=== PATIENT | female | born 1960 | race Caucasian/White ===

== ENCOUNTER 2019-10-14 16:28 | Emergency (ER) | payer BC ==
[~2019-10-14] VITALS: Ht 170.2 cm; Wt 98.6 kg
--- NOTE | 2019-10-14 18:57 | NUR ---
[facility]ASC CALLED BACK AT 18:57. ON WAY IN
--- NOTE | 2019-10-14 19:26 | NUR ---
[employer]er is at the bedside at this time completing the study of the vessels in the left lower extremities.
[2019-10-14] MEDS ORDERED: APIX5TAB3 PO (20:36)
[2019-10-14 21:03] LABS: ALANINE AMINOTRANSFERASE 23 U/L (12-78); ALBUMIN 3.7 G/DL (3.4-5.0); ALKALINE PHOSPHATASE 107 IU/L (46-116); ANION GAP 8 (8-16); ASPARTATE AMINO TRANSFERASE 22 U/L (10-37); BILIRUBIN,TOTAL 0.3 MG/DL (0.1-1.0); BLOOD UREA NITROGEN 9 MG/DL (7-18); BUN/CREATININE RATIO 8.7 (6.6-38.0); CALCIUM 9.4 MG/DL (8.5-10.1); CHLORIDE 106 MMOL/L (99-107); CREATININE 1.04 MG/DL (0.40-0.90); GLUCOSE 96 MG/DL (70-104); POTASSIUM 4.5 MMOL/L (3.5-5.1); SODIUM 141 MMOL/L (135-145); TOTAL CARBON DIOXIDE 27.3 MMOL/L (24-32); TOTAL PROTEIN 7.3 G/DL (6.4-8.2); eGFR 55 ML/MIN
[2019-10-14] MEDS ORDERED: apixaban 5mg tablet PO STA (21:07)
[2019-10-14 22:11] VITALS: BP 120/74
== END 2019-10-14 21:26 | disposition home or self-care (01) ==
LOC: ER 16:28
DX: I82.422 Acute embolism and thrombosis of left iliac vein (principal); M79.89 Other specified soft tissue disorders; F17.210 Nicotine dependence, cigarettes, uncomplicated; Z98.890 Other specified postprocedural states; Z72.89 Other problems related to lifestyle; Z56.0 Unemployment, unspecified; Z88.8 Allergy status to other drugs, medicaments and biological substances; Z79.899 Other long term (current) drug therapy
CPT/HCPCS: 36415; 80053; 93971; 99285

== ENCOUNTER 2019-12-18 06:02 | Emergency (ER) | payer BC ==
[~2019-12-18] VITALS: Ht 170.2 cm; Wt 93.2 kg
[~2019-12-18 06:02] MED LIST: APIX5TAB3 PO
[2019-12-18 09:20] VITALS: BP 130/73
[2019-12-18] MEDS ORDERED: LIDOcaine Viscous 15ml cup ONE (10:01)
[2019-12-18] MEDS ORDERED: MIDAZolam 5mg/5ml vial ONE (10:01)
[2019-12-18] MEDS ORDERED: fentaNYL/PF 50MCG/1 ML 2ML syringe ONE (10:01)
[2019-12-18 10:45] VITALS: BP 113/71
[2019-12-18 10:55] VITALS: BP 119/72
[2019-12-18 11:05] VITALS: BP 107/60
[2019-12-18 11:15] VITALS: BP 111/72
--- NOTE | 2019-12-18 11:34 | NUR ---
REPORT RECEIVED FROM GI LAB AT THIS TIME, PATIENT AWAKE, ALERT, NO SIGNS OF DISTRESS NOTED.
[2019-12-18] MEDS ORDERED: PANT-47 PO (11:56)
[2019-12-18 12:04] VITALS: BP 111/72
== END 2019-12-18 12:06 | disposition home or self-care (01) ==
LOC: ER 06:03
DX: T18.198A Other foreign object in esophagus causing other injury, initial encounter (principal); K22.2 Esophageal obstruction; E78.00 Pure hypercholesterolemia, unspecified; Z86.718 Personal history of other venous thrombosis and embolism; Z56.0 Unemployment, unspecified; Z98.890 Other specified postprocedural states; Z88.7 Allergy status to serum and vaccine; Z79.899 Other long term (current) drug therapy; Z79.01 Long term (current) use of anticoagulants; Y92.89 Other specified places as the place of occurrence of the external cause
CPT/HCPCS: 43247; 99152; 99285; C1773; J2250; J3010; J7040; A4620

== ENCOUNTER 2021-05-07 05:11 | Inpatient (IN) | payer BC ==
[~2021-05-07] VITALS: Ht 167.6 cm; Wt 100.0 kg
[2021-05-07] VITALS (10 sets, daily range): BP systolic 100–133; BP diastolic 50–71
[~2021-05-07 05:11] MED LIST changes: +PANT-47 PO
[2021-05-07] MEDS ORDERED: PROP40TA72 PO ×2 (05:49→05:52)
[2021-05-07] MEDS ORDERED: EZET10TA6 PO (05:52)
[2021-05-07] MEDS ORDERED: HYDR-3686 PO (05:53)
[2021-05-07 06:11] LABS: BASOPHILS % (AUTO) 0.6 % (0-1); EOSINOPHILS # (AUTO) 0.3 X10'3 (0-0.9); EOSINOPHILS % (AUTO) 4.1 % (0-6); HEMATOCRIT 23.8 % (35.0-45.0); HEMOGLOBIN 7.2 g/dl (12.0-16.0); LYMPHOCYTES # (AUTO) 1.4 X10'3 (1.1-4.8); MEAN CORPUSCULAR HEMOGLOBIN 20.6 PG (27.0-31.0); MEAN CORPUSCULAR HGB CONC 30.4 g/dL (33.0-36.5); MEAN CORPUSCULAR VOLUME 67.8 FL (78-98); MEAN PLATELET VOLUME 7.6 FL (7.4-10.4); MONOCYTES # (AUTO) 0.6 X10'3 (0-0.9); MONOCYTES % (AUTO) 8.4 % (2-12); NEUTROPHILS # (AUTO) 4.9 X10'3 (1.8-7.7); NEUTROPHILS % (AUTO) 67.9 % (42-75); PLATELET COUNT 395 X10'3 (140-440); RED BLOOD COUNT 3.51 X10'6 (4.20-5.60); RED CELL DISTRIBUTION WIDTH 20.1 % (11.5-14.5); WHITE BLOOD COUNT 7.3 X10'3 (4.5-11.0)
[2021-05-07 06:25] LABS: ALANINE AMINOTRANSFERASE 25 U/L (12-78); ALBUMIN 3.2 G/DL (3.4-5.0); ALBUMIN/GLOBULIN RATIO 0.8 (1.1-1.5); ALKALINE PHOSPHATASE 114 IU/L (46-116); ANION GAP 11 (8-16); ASPARTATE AMINO TRANSFERASE 17 U/L (10-37); BILIRUBIN,TOTAL 0.3 MG/DL (0.1-1.0); BLOOD UREA NITROGEN 15 MG/DL (7-18); BUN/CREATININE RATIO 15.5 (6.6-38.0); CALCIUM 8.9 MG/DL (8.5-10.1); CHLORIDE 106 MMOL/L (99-107); CREATININE 0.97 MG/DL (0.40-0.90); GLUCOSE 94 MG/DL (70-104); SODIUM 142 MMOL/L (135-145); TOTAL CARBON DIOXIDE 25.2 MMOL/L (24-32); TOTAL PROTEIN 7.1 G/DL (6.4-8.2); eGFR 59 ML/MIN
[2021-05-07 07:08] LABS: APTT 23 SECONDS (22-32)
[2021-05-07] MEDS ORDERED: magnesium 4gm in 100ml NS 100 ML IV PRN (07:25)
[2021-05-07] MEDS ORDERED: PERFLUTREN PROTEIN-A MICROSPHR (Optison) 0.22 MG/ML 3ML VIAL IV ONE (07:25)
[2021-05-07] MEDS ORDERED: magnesium hydroxide 30ml (MOM) UD suspension PO PRN (07:25)
[2021-05-07] MEDS ORDERED: magnesium 2GM in 50ml NS 50 ML IV PRN (07:25)
[2021-05-07] MEDS ORDERED: potassium CL 10mEq/100ml bag 100 ML IV PRN (07:25)
[2021-05-07] MEDS ORDERED: mag hydrox/Alum hydrox/simeth 30ml oral suspension PO PRN (07:25)
[2021-05-07] MEDS ORDERED: potassium Cl 20 mEq SR tablet PO PRN ×2 (07:25)
[2021-05-07] MEDS ORDERED: ondansetron/PF 4mg/2ml inj IV PRN (07:25)
[2021-05-07] MEDS ORDERED: magnesium Cl slow-release 64mg tablet PO PRN (07:25)
[2021-05-07] MEDS ORDERED: acetaminophen 325mg tablet PO PRN (07:25)
[2021-05-07] MEDS: K and/or MAG REPLACEMENT MC SCH ×2 (08:00→20:00)
[2021-05-07] MEDS: docusate sod 100mg capsule PO SCH ×2 (08:00→21:16)
[2021-05-07 08:52] LABS: MAGNESIUM 2.1 MG/DL (1.5-2.4); POTASSIUM 4.4 MMOL/L (3.5-5.1)
[2021-05-07 11:06] LABS: ANISOCYTOSIS 3+; MICROCYTOSIS 2+; PLATELET ESTIMATE NORMAL
[2021-05-07 11:09] LABS: ELLIPTOCYTES FEW
[2021-05-07 11:10] LABS: POLYCHROMASIA 1+; TEAR DROP CELLS FEW
[2021-05-07] MEDS: pantoprazole 40MG/NS 100ML BAG 100 ML IV SCH ×2 (11:19→21:09)
[2021-05-07] MEDS ORDERED: APIX5TAB3 PO (12:42)
[2021-05-07] MEDS ORDERED: PANT-47 PO (12:42)
[2021-05-07 14:19] LABS: HEMATOCRIT 26.3 % (35.0-45.0); HEMOGLOBIN 8.2 g/dl (12.0-16.0); MEAN CORPUSCULAR HEMOGLOBIN 21.9 PG (27.0-31.0); MEAN CORPUSCULAR VOLUME 70.7 FL (78-98); MEAN PLATELET VOLUME 7.5 FL (7.4-10.4); PLATELET COUNT 349 X10'3 (140-440); RED BLOOD COUNT 3.73 X10'6 (4.20-5.60); RED CELL DISTRIBUTION WIDTH 22.7 % (11.5-14.5); WHITE BLOOD COUNT 7.1 X10'3 (4.5-11.0)
[2021-05-07] MEDS ORDERED: fentaNYL/PF 50MCG/1 ML 2ML syringe ONE (16:24)
[2021-05-07] MEDS ORDERED: MIDAZolam 1 MG/ML 5ML VIAL ONE (16:25)
[2021-05-07] MEDS ORDERED: LIDOcaine Viscous 15ml cup ONE (16:25)
[2021-05-07] MEDS ORDERED: simethicone 40mg/0.6ml oral drops 30ml PO PRN (18:05)
[2021-05-07] MEDS ORDERED: lidocaine 2% viscous 15 ML cup ***bronch room only MM ONE (18:05)
[2021-05-07] MEDS ORDERED: fentaNYL/PF 50MCG/1 ML 2ML syringe IV ONE (18:10)
[2021-05-07] MEDS ORDERED: PEG 3350/Na sulf,bicarb,Cl/KCl oral sol 4 liter bottle PO ONE (18:10)
[2021-05-07] MEDS ORDERED: MIDAZolam 1 MG/ML 5ML VIAL IV ONE (18:10)
--- NOTE | 2021-05-07 19:27 | NUR ---
Only one unit of blood ordered by ED MD, second unit ordered in error per Betsy RN
--- NOTE | 2021-05-07 19:30 | NUR ---
Received report from DAWSON Bonilla. Awaiting patient arrival to the floor.
[2021-05-07] MEDS: normal saline 1000ml 1,000 ML IV SCH (21:17)
[2021-05-08] VITALS (8 sets, daily range): BP systolic 116–138; BP diastolic 51–73
[2021-05-08 06:12] LABS: BASOPHILS % (AUTO) 0.5 % (0-1); EOSINOPHILS # (AUTO) 0.2 X10'3 (0-0.9); EOSINOPHILS % (AUTO) 2.8 % (0-6); HEMATOCRIT 27.9 % (35.0-45.0); HEMOGLOBIN 8.6 g/dl (12.0-16.0); LYMPHOCYTES # (AUTO) 1.3 X10'3 (1.1-4.8); LYMPHOCYTES % (AUTO) 16.4 % (21-51); MEAN CORPUSCULAR HEMOGLOBIN 21.9 PG (27.0-31.0); MEAN CORPUSCULAR HGB CONC 30.8 g/dL (33.0-36.5); MEAN CORPUSCULAR VOLUME 70.9 FL (78-98); MEAN PLATELET VOLUME 7.9 FL (7.4-10.4); MONOCYTES # (AUTO) 0.6 X10'3 (0-0.9); MONOCYTES % (AUTO) 7.6 % (2-12); NEUTROPHILS # (AUTO) 5.8 X10'3 (1.8-7.7); NEUTROPHILS % (AUTO) 72.7 % (42-75); PLATELET COUNT 353 X10'3 (140-440); RED BLOOD COUNT 3.93 X10'6 (4.20-5.60); RED CELL DISTRIBUTION WIDTH 21.9 % (11.5-14.5)
[2021-05-08 06:16] LABS: ALBUMIN 3.1 G/DL (3.4-5.0); ANION GAP 9 (8-16); BLOOD UREA NITROGEN 12 MG/DL (7-18); BUN/CREATININE RATIO 13.5 (6.6-38.0); CALCIUM 8.7 MG/DL (8.5-10.1); CHLORIDE 106 MMOL/L (99-107); CREATININE 0.89 MG/DL (0.40-0.90); GLUCOSE 90 MG/DL (70-104); POTASSIUM 3.9 MMOL/L (3.5-5.1); SODIUM 141 MMOL/L (135-145); TOTAL CARBON DIOXIDE 26.2 MMOL/L (24-32); eGFR 65 ML/MIN
--- NOTE | 2021-05-08 06:48 | NUR ---
Problems reprioritized. Patient report given, questions answered & plan of care reviewed with DAWSON Thompson.
[2021-05-08] MEDS: docusate sod 100mg capsule PO SCH (07:39)
[2021-05-08] MEDS: K and/or MAG REPLACEMENT MC SCH (08:00)
[2021-05-08] MEDS: normal saline 1000ml 1,000 ML IV SCH ×2 (08:50→10:05)
[2021-05-08] MEDS: pantoprazole 40MG/NS 100ML BAG 100 ML IV SCH (08:50)
[2021-05-08] MEDS ORDERED: fentaNYL/PF 50MCG/1 ML 2ML syringe ONE (10:00)
[2021-05-08] MEDS ORDERED: MIDAZolam 1 MG/ML 5ML VIAL ONE (10:00)
--- NOTE | 2021-05-08 14:45 | NUR ---
patient stable and appropriate for discharge home with . IV removed, all belongings taken from room. No new medications ordered. All discharge instructions and education given and reviewed with patient, all questions answered.
== END 2021-05-08 14:45 | disposition home or self-care (01) | DRG 394 ==
LOC: ER 05:11 → ED HOLD 07:27 → SUR 3N 19:45
PROVIDERS: ADMIT Family Medicine; ATTEND Family Medicine
PROC: 30233N1 Transfusion of Nonautologous Red Blood Cells into Peripheral Vein, Percutaneous Approach (ICD-10-PCS; principal; 2021-05-07)
PROC: 0DB68ZX Excision of Stomach, Via Natural or Artificial Opening Endoscopic, Diagnostic (ICD-10-PCS; 2021-05-07)
PROC: 0DB98ZX Excision of Duodenum, Via Natural or Artificial Opening Endoscopic, Diagnostic (ICD-10-PCS; 2021-05-07)
PROC: 0DBP8ZZ Excision of Rectum, Via Natural or Artificial Opening Endoscopic (ICD-10-PCS; 2021-05-08)
PROC: 0DBC8ZX Excision of Ileocecal Valve, Via Natural or Artificial Opening Endoscopic, Diagnostic (ICD-10-PCS; 2021-05-08)
PROC: 0DBB8ZX Excision of Ileum, Via Natural or Artificial Opening Endoscopic, Diagnostic (ICD-10-PCS; 2021-05-08)
DX: K63.3 Ulcer of intestine (principal); D62 Acute posthemorrhagic anemia; E78.00 Pure hypercholesterolemia, unspecified; K44.9 Diaphragmatic hernia without obstruction or gangrene; R19.5 Other fecal abnormalities; F17.200 Nicotine dependence, unspecified, uncomplicated; K21.9 Gastro-esophageal reflux disease without esophagitis; K29.70 Gastritis, unspecified, without bleeding; K62.1 Rectal polyp; E78.5 Hyperlipidemia, unspecified; Z79.01 Long term (current) use of anticoagulants; Z86.718 Personal history of other venous thrombosis and embolism; Z56.0 Unemployment, unspecified; Z88.7 Allergy status to serum and vaccine; Z79.899 Other long term (current) drug therapy
CPT/HCPCS: 36415; 36430; 43239; 45380; 45385; 71045; 80048; 80053; 83735; 83880; 84132; 84484; 85008; 85025; 85027; 85610; 85730; 86885; 86900; 86901; 86920; 93005; 93306; 99152; 99153; 99285; A4620; C1773; C9113; G0378; J2250; J3010; J7030; J7040; P9016

== ENCOUNTER 2023-04-20 10:35 | Day surgery (SDC) | payer BC ==
[2023-04-14 16:00] LABS: BASOPHILS % (AUTO) 0.5 % (0-1); EOSINOPHILS # (AUTO) 0.2 X10'3 (0-0.9); EOSINOPHILS % (AUTO) 2.7 % (0-6); LYMPHOCYTES # (AUTO) 1.7 X10'3 (1.1-4.8); LYMPHOCYTES % (AUTO) 24.9 % (21-51); MEAN CORPUSCULAR HGB CONC 32.8 g/dL (33.0-36.5); MEAN CORPUSCULAR VOLUME 91.6 FL (78-98); MEAN PLATELET VOLUME 8.4 FL (7.4-10.4); MONOCYTES # (AUTO) 0.5 X10'3 (0-0.9); MONOCYTES % (AUTO) 7.4 % (2-12); NEUTROPHILS # (AUTO) 4.5 X10'3 (1.8-7.7); NEUTROPHILS % (AUTO) 64.5 % (42-75); PRE OP HEMATOCRIT 39.6 % (35.0-45.0); PRE OP PLATELET COUNT 260 X10'3 (140-440); PRE OP WHITE BLOOD COUNT 6.9 10'3 (4.8-10.8); RED BLOOD COUNT 4.32 X10'6 (4.20-5.60); RED CELL DISTRIBUTION WIDTH 13.9 % (11.5-14.5)
[2023-04-14 16:10] LABS: PRE OP INR 0.9 INR; PRE OP PROTIME 10.1 SECONDS (9.0-12.0)
[2023-04-14 16:13] LABS: ALBUMIN 3.3 G/DL (3.4-5.0); ALBUMIN/GLOBULIN RATIO 0.8 (1.1-1.5); ALKALINE PHOSPHATASE 87 IU/L (46-116); BLOOD UREA NITROGEN 11 MG/DL (7-18); BUN/CREATININE RATIO 10.9 (10.0-20.0); CHLORIDE 103 MMOL/L (99-107); CREATININE 1.01 MG/DL (0.40-0.90); PRE OP ALT 22 U/L (30-65); PRE OP ANION GAP 5 (8-16); PRE OP AST 16 U/L (10-37); PRE OP BILIRUB, TOTAL 0.2 MG/DL (0.0-1.0); PRE OP GLUCOSE 81 MG/DL (70-104); PRE OP POTASSIUM 4.2 MMOL/L (3.4-5.1); PRE OP SODIUM 139 MMOL/L (135-145); TOTAL CARBON DIOXIDE 31.4 MMOL/L (24-32); TOTAL PROTEIN 7.3 G/DL (6.4-8.2); eGFR 56 ML/MIN
[~2023-04-20] VITALS: Ht 167.6 cm; Wt 108.2 kg
[2023-04-20] VITALS (10 sets, daily range): BP systolic 114–131; BP diastolic 45–73; PULSE 56–67; RESP 9–17; TEMP 97; O2SAT 92–99
[~2023-04-20 10:35] MED LIST changes: +DOCUMENT DATE & TIME OF BETA-BLOCKER PO ONE; +EZET10TA6 PO; +PROP40TA72 PO; +ceFAZolin 1GM/D5W- ADD-VANTAGE 50 ML IV ONE; +famotidine 20mg tablet PO ONE; +ringers solution, lacted 1,000 ML IV SCH
[2023-04-20] MEDS ORDERED: ondansetron/PF 4mg/2ml inj IV PRN (11:20)
[2023-04-20] MEDS ORDERED: ringers solution, lacted 1,000 ML IV SCH (11:20)
[2023-04-20] MEDS ORDERED: labetalol 20mg/4ml (5mg/ml) syringe IV PRN (11:20)
[2023-04-20] MEDS ORDERED: morphine 4 MG/ML inj SYRINge IV PRN (11:20)
[2023-04-20] MEDS ORDERED: hydrALAZINE 20mg/ml inj. IV PRN (11:20)
[2023-04-20] MEDS ORDERED: morphine 2 MG/ML inj. syringe IV PRN (11:20)
[2023-04-20] MEDS ORDERED: fentaNYL/PF 50MCG/1 ML 2ML syringe IV PRN ×2 (11:20)
[2023-04-20] MEDS ORDERED: BUPIVAcaine 2.5mg/ml inj 50ml vial (contains preservative) ONE ×2 (12:53→13:02)
[2023-04-20] MEDS ORDERED: propofol inj 20 ML IV ONE (13:15)
[2023-04-20] MEDS ORDERED: LIDOcaine 2% (20mg/ml) 5ml vial ONE (13:15)
[2023-04-20] MEDS ORDERED: MIDAZolam 1 MG/ML 5ML VIAL ONE (13:15)
[2023-04-20] MEDS ORDERED: fentaNYL/PF 50MCG/1 ML 2ML syringe ONE (13:15)
[2023-04-20] MEDS ORDERED: sevoflurane 250ml liquid IH ONE (13:15)
[2023-04-20] MEDS ORDERED: dexamethasone sod phosphate 4mg/ml inj. ONE (13:16)
[2023-04-20] MEDS ORDERED: ondansetron/PF 4mg/2ml inj ONE (13:16)
[2023-04-20] MEDS ORDERED: acetaminophen 1,000mg/100ml IV 100 ML IV ONE (13:28)
[2023-04-20] MEDS ORDERED: ATROPINE SULFATE 0.4 MG/ML injection (OR only) ONE ×2 (13:48→14:03)
[2023-04-20] MEDS ORDERED: BUPIVAcaine 2.5mg/ml inj 50ml vial (contains preservative) SQ ONE (14:07)
== END 2023-04-20 16:10 | disposition home or self-care (01) ==
LOC: PRE-OP 10:35
PROVIDERS: ATTEND Surgery
DX: D05.11 Intraductal carcinoma in situ of right breast (principal); G25.0 Essential tremor; K21.9 Gastro-esophageal reflux disease without esophagitis; Z98.890 Other specified postprocedural states; Z96.641 Presence of right artificial hip joint; Z86.718 Personal history of other venous thrombosis and embolism; Z79.899 Other long term (current) drug therapy; Z87.891 Personal history of nicotine dependence; Z79.01 Long term (current) use of anticoagulants
CPT/HCPCS: 19301; 36415; 80053; 82948; 85025; 85610; 85730; 93005; J0131; J0690; J1100; J2250; J2270; J2405; J2704; J3010; J3490; J7030; J7120; Z7506; Z7508; Z7512; A4215; A4618; A6449; A7000